=== PATIENT | male | born 1995 | race Caucasian/White ===

== ENCOUNTER 2020-02-10 18:20 | Emergency (ER) | payer BC, OTHER ==
[~2020-02-10] VITALS: Ht 177.8 cm; Wt 62.1 kg
[2020-02-10 18:37] VITALS: BP 130/85
== END 2020-02-10 19:39 | disposition home or self-care (01) ==
LOC: ER 18:20
DX: S80.812A Abrasion, left lower leg, initial encounter (principal); S60.511A Abrasion of right hand, initial encounter; M25.532 Pain in left wrist; M25.531 Pain in right wrist; M79.602 Pain in left arm; V19.9XXA Pedal cyclist (driver) (passenger) injured in unspecified traffic accident, initial encounter; Y93.89 Activity, other specified; Y92.89 Other specified places as the place of occurrence of the external cause; Y99.8 Other external cause status